=== PATIENT | male | born 1995 | race Two or more races ===

== ENCOUNTER 2017-10-13 00:31 | Emergency (ER) | payer SELFPAY ==
[~2017-10-13] VITALS: Ht 167.6 cm; Wt 98.9 kg
[2017-10-13 00:35] VITALS: Ht 167.6 cm; Wt 98.9 kg
[2017-10-13 02:57] LABS: CALCIUM 8.8 mg/dL (8.5-10.1); CARBON DIOXIDE 25.7 mmol/L (21-32); CHLORIDE SERUM 99 mmol/L (98-107); GFR1 > 60 mL/min; GLUCOSE SERUM 112 mg/dL (74-106); POTASSIUM SERUM 3.5 mmol/L (3.5-5.1); SODIUM SERUM 135 mmol/L (136-145)
[2017-10-13 03:02] LABS: ALBUMIN 4.3 g/dL (3.4-5.0); ALKALINE PHOSPHATASE 93 U/L (46-116); ALT/SGPT 20 U/L (16-63); AST/SGOT 14 U/L (15-37); BILIRUBIN TOTAL 0.62 mg/dL (0.20-1.00)
[2017-10-13 03:03] LABS: TOTAL PROTEIN, SERUM 8.7 g/dL (6.4-8.2)
[2017-10-13 03:47] VITALS: BP 136/71
== END 2017-10-13 03:47 | disposition home or self-care (01) ==
LOC: ED 00:31
PROVIDERS: Emergency Medicine
DX: R19.7 Diarrhea, unspecified (principal)
CPT/HCPCS: J0500